=== PATIENT | male | born 1995 | race Caucasian/White ===

== ENCOUNTER 2022-09-01 09:31 | Emergency (ER) | payer OTHER, SELFPAY ==
--- NOTE | ~2022-09-01 | CT_ITS ---
EXAMINATION: CT soft tissue neck w con DATE: 09/01/2022 12:14 INDICATION: Left neck mass. TECHNIQUE: Computed tomography (CT) of the neck was performed with 75 mL Omnipaque-350 intravenous co ntrast. Automated exposure control and iterative reconstruction technique were employed. The dose-gala gth product was 487.94 mGy-cm. COMPARISON: None FINDINGS: There is mediastinal and left supraclavicular lymphadenopathy. There is left mid and low in ternal jugular chain lymphadenopathy and left spinal accessory chain lymphadenopathy. For example, a left supraclavicular node measures 2.4 x 1.7 cm. There is mucosal thickening in the paranasal sinuses . The mastoid air cells are normal. There is mild cervical spondylosis. IMPRESSION: 1. Mediastinal and left neck lymphadenopathy, consistent with lymphoma versus metastatic disease. Ult rasound-guided core needle biopsy of a left supraclavicular lymph node is recommended. Reviewed, dictated and finalized at location A. KO KURA [facility]UP[facility]A MAORI IMPRESSION: 1. Mediastinal and left neck lymphadenopathy, consistent with lymphoma versus m etastatic disease. Ultrasound-guided core needle biopsy of a left supraclavicul ar lymph node is recommended.
[2022-09-01 09:41] VITALS: BP 115/72; PULSE 58; RESP 16; TEMP 36.6; O2SAT 100
--- NOTE | 2022-09-01 10:58 | ED.GENADULT ---
HPI - General Adult General Chief complaint: Skin/Abscess/Foreign Body Stated complaint: mass on neck Time Seen by Provider: 09/01/22 10:27 Source: patient Mode of arrival: ambulatory Limitations: no limitations History of Present Illness HPI narrative: Patient is a 27 y/o male who presents to the ED with c/o hard nodules to L sided neck. Patient reports he first noticed a hard firm nodule to his left side neck 3 weeks ago. He has since developed 2 other small nodules in his left sided neck. He denies any changes of the size over the last couple weeks. The nodules are nonpainful, but do seem to become aggravated when he is active and working out. He denies any other symptoms. Denies fever, chills, night sweats, weight loss, cough or cold symptoms, sore throat, difficulty breathing, difficulty swallowing, numbness. Patient has an appointment with a new primary care doctor to have this evaluated on September 22. He notes FHx of lymphoma. Related Data Allergies Allergy/AdvReac Type Severity Reaction Status Date / Time No Known Allergies Allergy Verified 09/01/22 09:40 Review of Systems Review of Systems: CONSTITUTIONAL: Denies fever, chills, night sweats, weight loss, or sweats. EYES: Denies visual changes, redness, or discharge. ENT: Reports firm nodules to L sided neck. Denies rhinorrhea, congestion, sore throat. CARDIOVASCULAR: Denies chest pain. RESPIRATORY: Denies cough or dyspnea. GASTROINTESTINAL: Denies abdominal pain, nausea, vomiting. NEUROLOGIC: Denies headache, numbness, or weakness. All systems reviewed & are unremarkable except as noted in HPI and below PMFSH Past Medical History Medical History (Updated 09/01/22 @ 13:37 by Eda Ge PA-C) No pertinent past medical history Surgical History Surgical History (Updated 09/01/22 @ 11:02 by Eda Ge PA-C) No pertinent past surgical history Family History Family History (Updated 09/01/22 @ 13:54 by Eda Ge PA-C) Other Lymphoma Social History Social History (Updated 09/01/22 @ 11:02 by Eda Ge PA-C) Smoking status: Never smoker Exam Narrative: GENERAL: Well appearing, well-nourished, non-toxic, in no acute distress. HEAD: Normocephalic, atraumatic. NECK: Supple. Firm but movable marble-sized nodule to left lateral lower neck, slightly more posterior vs. supraclavicular region. No tenderness to palpation. 2 smaller firm nodules 2 fingerbreadths below larger nodule. RESPIRATORY: Airway patent, respirations nonlabored. Clear to auscultation bilaterally, no rales, rhonchi, wheezing. CARDIOVASCULAR: Regular rate and rhythm without murmurs, rubs, or gallops. Peripheral pulses 2+ and equal bilaterally. MUSCULOSKELETAL: Moves all extremities. Strength/ROM intact without gross deformities. SKIN: Warm, dry, normal color. No rashes. NEURO: A&O X3. Speech clear. Cranial nerves II-XII grossly intact. Steady gait. No ataxic movements. PSYCHIATRIC: Appropriate mood and affect. Normal interaction. Course Consultations Consultation #1: Discussed case with Dr. Heath, heme-onc, will see patient in office to have biopsy performed. Date: 09/01/22 Vital Signs Vital signs: Vital Signs Temperature 98 F 09/01/22 09:41 Pulse Rate 58 L 09/01/22 09:41 Respiratory Rate 16 09/01/22 09:41 Blood Pressure 115/72 09/01/22 09:41 Pulse Oximetry 100 09/01/22 09:41 Temperature 98 F 09/01/22 09:41 Pulse Rate 58 L 09/01/22 09:41 Respiratory Rate 16 09/01/22 09:41 Blood Pressure 115/72 09/01/22 09:41 Pulse Oximetry 100 09/01/22 09:41 Medical Decision Making [facility] Narrative Medical decision making narrative: Patient presented to ED with 3-week history of firm lymph nodes/nodules in left-sided neck. Vitals stable upon arrival. Patient denying any associated symptoms, no systemic sx's, no B type sx's. No signs of airway compromise. CT soft tissue neck obtained to further evaluate and
[2022-09-01 11:21] LABS: Basophils Absolute Auto 0.1 K/mm3 (0.0-0.1); Basophils Percent Auto 0.7 % (0.2-1.2); Eosinophils Absolute Auto 0.5 K/mm3 (0-0.3); Eosinophils Percent Auto 4.8 % (0-4.4); Hematocrit 40.8 % (42.0-52.0); Hemoglobin 13.5 g/dL (14.0-18.0); Immature Granulocyte Absolute 0.02 K/mm3 (0.00-0.031); Immature Granulocyte Percent A 0.2 % (0-0.5); Lymphocytes Absolute Auto 1.92 K/mm3 (0.9-3.2); Lymphocytes Percent Auto 20.5 % (18.3-44.2); Mean Corpuscular HGB Conc 33.1 g/dl (32-36); Mean Corpuscular Hemoglobin 30.1 pg (26-34); Mean Corpuscular Volume 91.1 fl (80-100); Mean Platelet Volume 9.4 fl (7.4-10.4); Monocytes Absolute Auto 0.7 K/mm3 (0.1-0.6); Monocytes Percent Auto 7.7 % (2.6-8.5); Neutrophils Absolute Auto 6.2 K/mm3 (1.3-6.7); Neutrophils Percent Auto 66.1 % (45.5-73.1); Platelet Count Result 292 k/mm3 (150-375); Red Blood Count 4.48 M/mm3 (4.6-6.20); Red Cell Distribution Width 13.1 % (11.5-14.5); White Blood Count 9.4 K/mm3 (4.5-10.0)
[2022-09-01 11:42] LABS: Anion Gap 8 mmol/L (8-16); Blood Urea Nitrogen 15 mg/dL (9-20); Calcium 9.1 mg/dL (8.4-10.2); Carbon Dioxide 31 mmol/L (22-30); Chloride 100 mmol/L (98-107); Estimated CRCL calculation 85 ml/min; Estimated Glomerular Filt Rate > 60; Glucose 87 mg/dL (65-110); Potassium 4.6 mmol/L (3.4-5.0); Sodium 139 mmol/L (137-145)
[2022-09-01 13:48] LABS: Alanine Aminotransferase 29 U/L (6-50); Albumin Level 4.6 g/dL (3.5-5.1); Alkaline Phosphatase 76 U/L (38-126); Aspartate Amino Transferase 35 U/L (17-59); Bilirubin,Total 0.5 mg/dL (0.2-1.3)
== END 2022-09-01 13:55 | disposition home or self-care (01) ==
PROVIDERS: Emergency Provider Physician Assistant
DX: R59.0 Localized enlarged lymph nodes (principal)
CPT/HCPCS: 36415; 70491; 80048; 80076; 85025; 99284; Q9967

== ENCOUNTER 2022-09-10 12:57 | Outpatient (CLI) | payer OTHER, SELFPAY ==
--- NOTE | ~2022-09-10 | US_ITS ---
EXAMINATION: US biopsy lymph node DATE: 09/10/2022 14:35 INDICATION: Left cervical lymphadenopathy TECHNIQUE: The procedure including the risks and benefits was discussed with the patient. Risks discu ssed included bleeding and infection. The patient understood the risks and agreed to proceed. The sk in overlying the left supraclavicular region was prepped and draped in usual sterile fashion. Anesth etic was administered with 1% lidocaine subcutaneously. 14 gauge and 18-gauge core biopsy needles we re utilized to biopsy a pair of abnormal lymph nodes, the larger measuring 2.3 x 1.3 cm and the small er measuring 1.3 x 0.9 cm appearing relatively round, very hypoechoic and without evident central fat ty hilum. There was a small amount of hemorrhage following the initial biopsy and pressure was mainta ined until hemostasis was obtained before proceeding with the subsequent 7 passes. The needle was re moved and the entry site was cleaned and dressed. Post procedure ultrasound demonstrated no progress ion of the initial small amount of hemorrhage. FINDINGS: Ultrasound images demonstrate biopsy needles advanced into a pair of enlarged abnormal left supraclavicular lymph nodes.. IMPRESSION: 1. Successful Ultrasound-guided biopsy of 2.3 x 1.3 cm and 1.3 x 0.9 cm left supraclavicular lymph no michelle. Reviewed, dictated and finalized at location A. NG ERECTOR IMPRESSION: 1. Successful Ultrasound-guided biopsy of 2.3 x 1.3 cm and 1.3 x 0.9 cm left carty praclavicular lymph nodes.
== END 2022-09-10 12:58 | disposition home or self-care (01) ==
PROVIDERS: PCP Internal Medicine Hematology & Oncology; Visit Provider Internal Medicine Hematology & Oncology
DX: R59.1 Generalized enlarged lymph nodes (principal)
CPT/HCPCS: 38505; 76942; 88305; 88341; 88342; 88365

== ENCOUNTER 2022-09-22 12:29 | Outpatient (CLI) | payer OTHER, SELFPAY ==
--- NOTE | 2022-09-22 16:33 | WPDPFTINT ---
PFT Procedure Performed PFT Procedure Performed Plethysmography (Lung Vol) Diffusing Cap (DLCO) Flow Vol Loop Spirometry w/o Bronchodil PFT Interpretation This is a pulmonary function test with spirometry, plethysmography and diffusing capacity. The test was performed and results interpreted in accordance with the 2019 and 2005 ATS/ERS Task Force guidelines respectively using the Global Lung Function Initiative-2012 reference equations. Patient demonstrated good effort and cooperation. Reproducibility criteria were met. The quality of the spirometry maneuver was Grade A. Findings: Spirometry: Two of the 3 expiratory efforts demonstrate a mid expiratory plateau or knee pattern. The contour the inspiratory flow tracing is normal. The FVC is 5.22 L, 113% predicted. The FEV1 is 3.78 L, 98% predicted. The FEV1: FVC ratio 72%. Plethysmography: The total lung capacity is 7.82, 133% predicted. The functional residual capacity is 4.64 L, 169% predicted. The residual volume is 2.60 L, 203% predicted. Diffusing capacity: The diffusing capacity unadjusted for hemoglobin and carboxyhemoglobin is 25.4, 75% predicted. The diffusing capacity adjusted for alveolar volume is 4.75, 86% predicted. Impression: The knee pattern can be a normal variant or pathologic and has been attributed to a choke point section of the bronchial tree. The normal variant is more common in younger female patients, decreases with age and is more pronounced in the post bronchodilator efforts. The pattern has also been described with kyphosis, kyphoscoliosis, central obstructing mass, and post lung transplantation. Otherwise, the spirometry is normal without evidence of an obstructive abnormality. The total lung capacity, functional residual capacity and residual volume are all increased with a normal RV/TLC ratio suggestive of large lungs. The diffusing capacity unadjusted for hemoglobin and carboxyhemoglobin is mildly decreased and normalizes when adjusted for alveolar volume.is normal. There are no prior studies for comparison
== END 2022-09-22 12:30 | disposition home or self-care (01) ==
LOC: ANHPFT 12:30
PROVIDERS: PCP Internal Medicine Hematology & Oncology; Visit Provider Internal Medicine Hematology & Oncology
DX: C81.11 Nodular sclerosis Hodgkin lymphoma, lymph nodes of head, face, and neck (principal)
CPT/HCPCS: 94375; 94726; 94729

== ENCOUNTER 2022-09-30 09:20 | Outpatient (CLI) | payer OTHER, SELFPAY ==
--- NOTE | 2022-09-30 | ECHO_ITS ---
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 Summary 1. Complete two-dimensional, color flow and Doppler transthoracic echocardiogram is performed. 2. Left ventricular chamber dimension is mildly enlarged. 3. Left ventricular systolic function is normal, estimated at 50-55%. 4. The left ventricular diastolic function is grade I diastolic dysfunction. 5. Global longitudinal strain is abnormal at -18 %. 6. Right ventricular systolic function is normal. Left Ventricle Left ventricular chamber dimension is mildly enlarged. Left ventricular systolic function is normal, estimated at 50-55%. There is no increased left ventricular wall thickness. The left ventricular diastolic function is grade I diastolic dysfunction. Global longitudinal strain is abnormal at -18 %. Right Ventricle Right ventricular chamber dimension is normal. Right ventricular systolic function is normal. Left Atria Left atrial chamber dimension is normal. Right Atria Right atrial chamber dimension is normal. Atrial Septum Intact interatrial septum visualized by color flow imaging. Aortic Valve The aortic valve is trileaflet. There is no aortic valve stenosis. There is no aortic valve regurgitation. Pulmonic Valve The pulmonic valve is not well visualized. Mitral Valve The mitral valve has normal leaflets. There is no mitral valve stenosis. There is trace mitral valve regurgitation. Tricuspid Valve The tricuspid valve leaflets are normal. There is no significant tricuspid valve stenosis. There is trace tricuspid valve regurgitation. Pericardium/Pleural There is no pericardial effusion. Inferior Vena Cava Normal inferior vena cava with >50% collapse upon inspiration consistent with normal right atrial pressure. Aorta The aortic root size at the sinus of Valsalva is normal. Left Ventricular Outflow Tract Name Value Normal LVOT 2D LVOT Diameter 2.1 cm Pulmonic Valve Name Value Normal RVOT Doppler RVOT Peak Gradient 2 mmHg PV Doppler PV Peak Gradient 3 mmHg Mitral Valve Name Value Normal
--- NOTE | ~2022-09-30 | PE_ITS ---
EXAMINATION: PET skull to mid thigh DATE: 09/30/2022 13:45 INDICATION: Nodular sclerosing Hodgkin's lymphoma TECHNIQUE: Blood glucose level was 86 mg/dL. 10.032 mCi of 18-fluorodeoxyglucose (18-FDG) was adminis tered i.v. Low dose computed tomography (CT) images were acquired from the base of the brain to the p roximal thighs for attenuation correction and anatomic localization. Positron emission tomography (PE T) images were acquired in the same distribution beginning 52 minutes after injection. The dose-lengt h product (DLP) was 464.13 mGy-cm. COMPARISON: 09/01/2022 FINDINGS: Head/neck: There is left supraclavicular, left mid and lower jugular chain lymphadenopathy with assoc iated abnormal FDG uptake. There has been no appreciable interval change since the comparison CT, acc ounting for differences in technique.SUV max is 17 and a supraclavicular lymph node on image 72. FDG activity in the orbits, oral cavity, and vocal cords is likely physiologic. There is mild mucosal thi ckening of the paranasal sinuses. Chest: There is upper mediastinal lymphadenopathy with abnormal FDG uptake and SUV max of 7.4. No add itional abnormal FDG uptake is seen. There is mild dependent atelectasis. No pleural effusion or pneu mothorax. The heart size is normal. Abdomen/pelvis/proximal thighs: No abnormal FDG uptake is identified. Physiologic FDG activity is pre sent in the bowel and urinary tract. The liver, spleen, pancreas, gallbladder, and adrenal glands are normal. The kidneys are unremarkable. No pathologically enlarged abdominal or pelvic lymph nodes are identified. There is no free intraperitoneal gas or evidence of bowel obstruction. Musculoskeletal: No abnormal FDG uptake is identified. IMPRESSION: 1. Left supraclavicular, left mid and lower jugular chain, and upper mediastinal lymphadenopathy with abnormal FDG uptake, consistent with lymphoma. Reviewed, dictated and finalized at location L. REMENT MANAGER IMPRESSION: 1. Left supraclavicular, left mid and lower jugular chain, and upper mediastina l lymphadenopathy with abnormal FDG uptake, consistent with lymphoma.
[2022-09-30 12:26] LABS: Glucose Point of Care 86 mg/dl (65-105)
== END 2022-09-30 09:21 | disposition home or self-care (01) ==
LOC: ANHCARD 09:21
PROVIDERS: PCP Internal Medicine Hematology & Oncology; Visit Provider Internal Medicine Hematology & Oncology
DX: C81.11 Nodular sclerosis Hodgkin lymphoma, lymph nodes of head, face, and neck (principal)
CPT/HCPCS: 78815; 93306; A9552